=== PATIENT | male | born 1990 ===

== ENCOUNTER 2019-12-09 09:16 | Outpatient (CLI) | payer OTHER | END 2019-12-09 13:00 | disposition home or self-care (01) | LOC: OFIC 805 09:16 | DX: R68.84 Jaw pain (principal); H92.03 Otalgia, bilateral ==

== ENCOUNTER 2019-12-10 11:03 | Outpatient (CLI) | payer OTHER | END 2019-12-10 12:00 | disposition home or self-care (01) | LOC: OFIC 805 11:03 | DX: R68.84 Jaw pain (principal); H92.03 Otalgia, bilateral; M26.69 Other specified disorders of temporomandibular joint; H61.23 Impacted cerumen, bilateral ==